=== PATIENT | male | born 1975 | race Caucasian/White ===

== ENCOUNTER 2022-06-13 02:06 | Emergency (ER) | payer BC ==
[2022-06-13 02:41] LABS: #Eosinphils 0.1 thou/uL (0.0-0.7); #Lymphocytes 3.1 thou/uL (1.20-3.40); #Monocytes 0.5 thou/uL (0.11-0.59); #Neutrophils 3.4 thou/uL (1.40-6.50); %Basophils 0.5 % (0.0-1.0); %Eosinophils 1.7 % (0.0-10.0); %Lymphocytes 43.7 % (21.0-51.0); %Neutrophils 47.2 % (42.0-75.0); Hemoglobin 16.2 g/dL (14.0-18.0); Mean Corpuscular HGB CONC 36.6 g/dL (32.0-36.0); Mean Corpuscular Hemoglobin 32.4 pg (27.0-31.0); Mean Corpuscular Volume 88.7 fl (78.0-98.0); Mean Platelet Volume 6.9 fL (7.4-10.4); Platelet Count 244 10x3/uL (130-400); RBC Distribution Width 12.6 % (11.5-14.5); White Blood Cell (WBC) Count 7.1 10x3/uL (4.8-10.8)
[2022-06-13 03:02] LABS: ALT (SGPT) 38 U/L (8-55); AST (SGOT) 41 U/L (5-34); Albumin 4.2 g/dL (3.5-5.0); Alkaline Phosphatase 90 U/L (40-110); Anion Gap 15 mmol/L (10-20); BUN (Urea Nitrogen) 13 mg/dL (8.9-20.6); Calc. Creatinine Clearance 0 mL/min (70-130); Carbon Dioxide 23 mmol/L (22-29); Chloride 100 mmol/L (98-107); Estimated GFR 75; Globulin 2.7 g/dL (2.4-3.5); Glucose 360 mg/dL (70-105); Potassium 3.9 mmol/L (3.5-5.1); Protein, Total 6.9 g/dL (6.0-8.3); Sodium 134 mmol/L (136-145)
[2022-06-13 04:46] LABS: Bilirubin, Total 1.2 mg/dL (0.2-1.2)
== END 2022-06-13 03:49 | disposition home or self-care (01) ==
LOC: ERS 02:06
DX: I47.1 Supraventricular tachycardia (principal); R73.9 Hyperglycemia, unspecified; I10 Essential (primary) hypertension; E78.5 Hyperlipidemia, unspecified
CPT/HCPCS: 71045; 80053; 84443; 84484; 85025; 93005

== ENCOUNTER 2025-02-09 00:52 | Inpatient (IN) | payer BC ==
[2025-02-09] MEDS ORDERED: Adenosine 6 mg (2 mL) VIAL ONE (01:08)
[2025-02-09 01:20] LABS: #Basophils 0.03 10x3/uL (0.0-0.2); #Eosinophils 0.07 10x3/uL (0.0-0.7); #Monocytes 0.81 10x3/uL (0.11-0.59); #Neutrophils 8.18 10x3/uL (1.40-6.50); %Basophils 0.2 % (0.0-1.0); %Eosinophils 0.5 % (0.0-10.0); %Lymphocytes 32.6 % (21.0-51.0); %Monocytes 6.0 % (0.0-10.0); %Neutrophils 60.4 % (42.0-75.0); Hematocrit 45.5 % (42.0-52.0); Hemoglobin 16.2 g/dL (14.0-18.0); Mean Corpuscular Hemoglobin 30.6 pg (27.0-31.0); Mean Corpuscular Volume 85.8 fL (78.0-98.0); Platelet Count 315 10x3/uL (130-400); Red Blood Cell (RBC) Count 5.30 mill/uL (4.70-6.10); White Blood Cell (WBC) Count 13.54 10x3/uL (4.8-10.8)
[2025-02-09 01:27] LABS: ALT (SGPT) 32 U/L (Less than 45); AST (SGOT) 32 U/L (11-34); Albumin 4.2 g/dL (3.1-4.5); Alkaline Phosphatase 55 U/L (40-110); Anion Gap 14 mmol/L (10-20); BUN (Urea Nitrogen) 12 mg/dL (8.9-20.6); Bilirubin, Total 1.1 mg/dL (0.3-1.2); Calc. Creatinine Clearance 0 mL/min (70-130); Calcium 8.8 mg/dL (7.8-10.44); Carbon Dioxide 29 mmol/L (22-29); Chloride 105 mmol/L (98-107); Globulin 2.7 g/dL (2.4-3.5); Glucose 209 mg/dL (70-105); Potassium 4.1 mmol/L (3.5-5.1); Sodium 144 mmol/L (136-145)
[2025-02-09 01:32] LABS: Troponin I 0.029 ng/mL (< 0.028)
[2025-02-09] MEDS ORDERED: Ondansetron PF 4 MG/2 ML Vial IVP PRN (02:20)
[2025-02-09] MEDS ORDERED: Acetaminophen 325 MG TAB PO PRN (02:20)
[2025-02-09 03:25] VITALS: BMI 36.1
[2025-02-09 05:05] LABS: Magnesium 2.0 mg/dL (1.6-2.6)
[2025-02-09 05:12] LABS: Troponin I 0.534 ng/mL (< 0.028)
[2025-02-09] MEDS ORDERED: Enoxaparin 40 MG (0.4 mL) SYRINGE SC SCH (09:00)
[2025-02-09] MEDS ORDERED: Communication Order-Pharmacy FS SCH (09:30)
[2025-02-09] MEDS: Famotidine 20 MG TAB PO SCH (09:46)
[2025-02-09] MEDS ORDERED: Iopamidol 370 76% 100 ML VIAL ONE (09:49)
[2025-02-09 10:20] LABS: Troponin I 1.704 ng/mL (< 0.028)
[2025-02-09] MEDS ORDERED: Lidocaine 1% (PF) 30 ML VIAL ONE (11:39)
[2025-02-09 15:48] LABS: Troponin I 1.992 ng/mL (< 0.028)
[2025-02-09] MEDS: Losartan 25 MG TAB PO SCH (22:18)
[2025-02-09] MEDS: Metoprolol Succinate XL 25 MG ER.TAB PO SCH (22:19)
[2025-02-10] MEDS: Aspirin 81 mg Enteric Coated Tablet PO SCH (09:19)
[2025-02-10] MEDS: Isosorbide Mononitrate 30 MG ER.TAB.S PO SCH (09:20)
[2025-02-10 09:24] LABS: Hematocrit 44.2 % (42.0-52.0); Hemoglobin 15.2 g/dL (14.0-18.0); Mean Corpuscular Hemoglobin 30.2 pg (27.0-31.0); Mean Corpuscular Volume 87.9 fL (78.0-98.0); Platelet Count 232 10x3/uL (130-400); Red Blood Cell (RBC) Count 5.03 mill/uL (4.70-6.10); White Blood Cell (WBC) Count 8.50 10x3/uL (4.8-10.8)
[2025-02-10 09:39] LABS: Anion Gap 11 mmol/L (10-20); BUN (Urea Nitrogen) 9 mg/dL (8.9-20.6); Calc. Creatinine Clearance 203 mL/min (70-130); Calcium 9.0 mg/dL (7.8-10.44); Carbon Dioxide 27 mmol/L (22-29); Chloride 108 mmol/L (98-107); Glucose 106 mg/dL (70-105); Potassium 3.8 mmol/L (3.5-5.1); Sodium 142 mmol/L (136-145)
[2025-02-10 13:09] VITALS: BP 132/79; TEMP 98.3
== END 2025-02-10 14:32 | disposition short-term general hospital (02) | DRG 282 ==
LOC: ERS 00:52 → 2NO 02:20 → OBSVTOIN 02-10 08:54
PROVIDERS: ADMIT Internal Medicine; ATTEND Internal Medicine
PROC: 4A023N7 Measurement of Cardiac Sampling and Pressure, Left Heart, Percutaneous Approach (ICD-10-PCS; principal; 2025-02-10)
PROC: B2151ZZ Fluoroscopy of Left Heart using Low Osmolar Contrast (ICD-10-PCS; 2025-02-10)
PROC: B2111ZZ Fluoroscopy of Multiple Coronary Arteries using Low Osmolar Contrast (ICD-10-PCS; 2025-02-10)
PROC: 5A2204Z Restoration of Cardiac Rhythm, Single (ICD-10-PCS; 2025-02-10)
DX: I47.10 Supraventricular tachycardia, unspecified (principal); I21.A1 Myocardial infarction type 2; I48.91 Unspecified atrial fibrillation; I45.10 Unspecified right bundle-branch block; I10 Essential (primary) hypertension; E78.5 Hyperlipidemia, unspecified; R73.03 Prediabetes; E66.01 Morbid (severe) obesity due to excess calories; I25.10 Atherosclerotic heart disease of native coronary artery without angina pectoris; K00.0 Anodontia; Z79.899 Other long term (current) drug therapy; Z98.890 Other specified postprocedural states; Z68.36 Body mass index [BMI] 36.0-36.9, adult
CPT/HCPCS: 36415; 36416; 80048; 80053; 83036; 83735; 84443; 84484; 85025; 85027; 92960; 93005; 93306; 93458; 93798; 96374; 96375; 99152; 99153; C1769; C1887; G0378; J0153; J2250; J3010; Q9967